=== PATIENT | female | born 1990 | race Two or more races ===

== ENCOUNTER 2021-02-10 16:23 | Emergency (ER) | payer OTHER ==
[~2021-02-10] VITALS: Ht 165.1 cm; Wt 67.1 kg
[~2021-02-10 16:23] MED LIST: CEPH500T MT; IBUP-2029 MT
[2021-02-10 20:29] LABS: BASOPHILS % 0.8 % (0.0-2.0); EOSINOPHILS % 1.4 % (0.0-5.0); HEMOGLOBIN. 14.2 g/dL (12.0-16.0); LYMPHOCYTES % 41.3 % (20.0-50.0); MEAN CORPUSCULAR HEMOGLOBIN 28.2 pg (28.0-32.0); MEAN CORPUSCULAR VOLUME 87.3 fL (81.0-99.0); MEAN PLATELET VOLUME 8.5 fl (7.4-10.4); MONOCYTES % 7.2 % (2.0-8.0); NEUTROPHILS % 49.3 % (40.0-76.0); PLATELET 288 x1000/uL (130-400); RED BLOOD CELL COUNT 5.04 mill/uL (4.2-5.4); RED CELL DISTRIBUTION WIDTH 15.1 % (11.6-14.6)
[2021-02-10 20:34] LABS: CHLORIDE 109 mEq/L (98-107)
[2021-02-10] MEDS ORDERED: MORPHINE SULFATE 4 MG/ML CPJ (NOT FOR IM USE) IV ONE (22:15)
[2021-02-10] MEDS ORDERED: MORPHINE SULFATE 2 MG/ML CPJ (NOT FOR IM USE) IV NR (22:17)
[2021-02-10 22:34] LABS: CLARITY URINE CLOUDY (CLEAR); COLOR URINE DARK YELLOW (YELLOW); KETONES URINE TRACE (NEGATIVE); LEUKOCYTE ESTERASE URINE 1+ (NEGATIVE); NITRITE URINE POSITIVE (NEGATIVE); OCCULT BLOOD URINE NEGATIVE (NEGATIVE); PH URINE 5.5 (4.5-8.0); PROTEIN URINE NEGATIVE (NEGATIVE); SPECIFIC GRAVITY URINE 1.025 (1.005-1.030)
[2021-02-11] MEDS ORDERED: CEFTRIAXONE 1 G PREMIX 50 ML IV ONE
[2021-02-11] MEDS ORDERED: CEPH500T MT (00:02)
[2021-02-11] MEDS ORDERED: IOHEXOL-300 100 ML BOTTLE ONE (01:05)
[2021-02-11 01:32] VITALS: BP 115/64
== END 2021-02-11 01:51 | disposition home or self-care (01) ==
LOC: ER 16:23
DX: N39.0 Urinary tract infection, site not specified (principal); N20.0 Calculus of kidney; I10 Essential (primary) hypertension; Z98.890 Other specified postprocedural states
CPT/HCPCS: 36415; 74177; 80053; 81003; 81025; 85025; 96365; 96375; 99285; J0696; J2270; Q9967

== ENCOUNTER 2022-10-23 19:42 | Emergency (ER) | payer MEDICAID, OTHER ==
[~2022-10-23] VITALS: Ht 162.6 cm; Wt 65.0 kg
[2022-10-23 19:58] VITALS: O2SAT 100
[2022-10-23] MEDS ORDERED: HYDROCODONE/ACETAMINOPHEN 5/325MG TABLET PO ONE (22:00)
[2022-10-23] MEDS ORDERED: NAPR-1176 MT (22:56)
[2022-10-23] MEDS ORDERED: CYCL10TA21 MT (22:56)
[2022-10-23 23:46] VITALS: BP 128/68; PULSE 82; RESP 16; TEMP 98
== END 2022-10-23 23:47 | disposition home or self-care (01) ==
LOC: ER 19:42
DX: S40.022A Contusion of left upper arm, initial encounter (principal); S70.02XA Contusion of left hip, initial encounter; I10 Essential (primary) hypertension; Z98.890 Other specified postprocedural states; V49.49XA Driver injured in collision with other motor vehicles in traffic accident, initial encounter; Y93.89 Activity, other specified; Y92.89 Other specified places as the place of occurrence of the external cause; Y99.8 Other external cause status
CPT/HCPCS: 73030; 73080; 73502; 81025; 99284

== ENCOUNTER 2024-03-06 11:18 | Emergency (ER) | payer MEDICAID ==
[~2024-03-06] VITALS: Ht 167.6 cm; Wt 77.0 kg
[~2024-03-06 11:18] MED LIST changes: +CYCL10TA21 MT; +NAPR-1176 MT
[2024-03-06 11:28] VITALS: BP 98/64; O2SAT 100
[2024-03-06 12:08] LABS: CLARITY URINE CLOUDY (CLEAR); COLOR URINE YELLOW (YELLOW); GLUCOSE URINE NEGATIVE (NEGATIVE); KETONES URINE NEGATIVE (NEGATIVE); LEUKOCYTE ESTERASE URINE 2+ (NEGATIVE); NITRITE URINE NEGATIVE (NEGATIVE); OCCULT BLOOD URINE NEGATIVE (NEGATIVE); PROTEIN URINE NEGATIVE (NEGATIVE); SPECIFIC GRAVITY URINE 1.025 (1.005-1.030); UROBILINOGEN URINE 0.2 E.U./dL (0.2-1.0)
[2024-03-06] MEDS ORDERED: IBUP-2028 MT (12:19)
[2024-03-06] MEDS ORDERED: NITR-87 MT (12:19)
[2024-03-06 12:24] LABS: BACTERIA URINE 2+; RBC URINE 0-2 /hpf (0-2); SQUAMOUS EPITHELIAL CELL URINE 3+ /lpf (RARE/1+); YEAST URINE NONE SEEN
[2024-03-06 12:43] VITALS: PULSE 85; RESP 18; TEMP 36.83628; O2SAT 100
== END 2024-03-06 13:19 | disposition home or self-care (01) ==
LOC: ER 11:18
DX: N39.0 Urinary tract infection, site not specified (principal); I10 Essential (primary) hypertension; Z98.890 Other specified postprocedural states; Z79.899 Other long term (current) drug therapy
CPT/HCPCS: 81003; 81025; 99283

== ENCOUNTER 2024-12-07 22:18 | Emergency (ER) | payer MEDICAID ==
[~2024-12-07] VITALS: Ht 162.6 cm; Wt 73.0 kg
[~2024-12-07 22:18] MED LIST changes: +IBUP-2028 MT; +NITR-87 MT
[2024-12-07 22:29] VITALS: O2SAT 99
[2024-12-07 23:47] LABS: BASOPHILS % 0.4 % (0.0-2.0); EOSINOPHILS % 2.3 % (0.0-5.0); HEMATOCRIT. 39.1 % (36.0-48.0); HEMOGLOBIN. 13.1 g/dL (12.0-16.0); LYMPHOCYTES % 37.5 % (20.0-50.0); MEAN PLATELET VOLUME 7.9 fl (7.4-10.4); MONOCYTES % 6.7 % (2.0-8.0); NEUTROPHILS % 53.1 % (40.0-76.0); PLATELET 303 x1000/uL (130-400); RED BLOOD CELL COUNT 4.67 mill/uL (4.2-5.4); RED CELL DISTRIBUTION WIDTH 16.1 % (11.6-14.6)
[2024-12-07 23:59] LABS: CREATININE 0.8 mg/dL (0.6-1.0); UREA NITROGEN BLOOD 12 mg/dL (9-23)
[2024-12-08 00:29] LABS: CLARITY URINE CLEAR (CLEAR); COLOR URINE YELLOW (YELLOW); GLUCOSE URINE NEGATIVE (NEGATIVE); KETONES URINE NEGATIVE (NEGATIVE); LEUKOCYTE ESTERASE URINE 1+ (NEGATIVE); NITRITE URINE NEGATIVE (NEGATIVE); OCCULT BLOOD URINE NEGATIVE (NEGATIVE); PH URINE 6.0 (4.5-8.0); PROTEIN URINE NEGATIVE (NEGATIVE); SPECIFIC GRAVITY URINE 1.017 (1.005-1.030); UROBILINOGEN URINE 0.2 E.U./dL (0.2-1.0)
[2024-12-08 01:12] VITALS: TEMP 36.8
[2024-12-08] MEDS: KETOROLAC 30MG/ML VIAL IM ONE (01:13)
[2024-12-08] MEDS: ONDANSETRON 4MG ODT PO ONE (01:14)
[2024-12-08] MEDS: HYDROCODONE/ACETAMINOPHEN 5/325MG TABLET PO ONE (01:14)
[2024-12-08 01:32] LABS: ASPARTATE AMINOTRANSFERASE 16 IU/L (<34); BILIRUBIN DIRECT < 0.1 mg/dL (<=3.0); BILIRUBIN TOTAL 0.2 mg/dL (0.1-1.0); PROTEIN TOTAL 7.2 g/dL (6.0-8.3)
[2024-12-08 01:57] LABS: SQUAMOUS EPITHELIAL CELL URINE FEW /lpf (RARE/1+)
[2024-12-08 01:58] LABS: RBC URINE 0-2 /hpf (0-2); WBC URINE 0-2 /hpf (0-2)
[2024-12-08 02:00] LABS: BACTERIA URINE NONE SEEN
[2024-12-08] MEDS ORDERED: ONDA-239 PO (02:02)
[2024-12-08] MEDS ORDERED: IBUP-2029 MT (02:02)
[2024-12-08 03:20] VITALS: BP 123/85; PULSE 73; RESP 13; O2SAT 100
== END 2024-12-08 03:23 | disposition home or self-care (01) ==
LOC: ER 22:24
DX: R10.30 Lower abdominal pain, unspecified (principal); Z79.899 Other long term (current) drug therapy; Z98.890 Other specified postprocedural states
CPT/HCPCS: 80048; 81003; 81025; 85025; 36415 ×2; 99285; 80076; 83690; 74176; 96372; Q0162; J1885; Z7610; A4606